=== PATIENT | male | born 1975 | race Caucasian/White ===

== ENCOUNTER 2017-02-14 17:21 | Emergency (ER) | payer OTHER ==
[~2017-02-14] VITALS: Ht 182.9 cm; Wt 72.8 kg
[~2017-02-14 17:21] MED LIST: ATARAX,VISTARIL25 MG PO; ATIVAN0.5 MG PO; BENTYL10 MG PO; BUSPAR15 MG PO; CATAPRES0.1 MG PO; CLONAZEPAM1 M1 PO; CLONIDINE HCL0.1 MG PO; CLONIDINE HCL0.2 MG PO; CYMBALTA30 MG PO; CYMBALTA60 MG PO; EFFEXOR XR37.5 MG PO; EFFEXOR25 MG PO; EFFEXOR37.5 MG PO; EFFEXOR75 MG PO; GABAPENTIN300 MG PO; GABAPENTIN600 MG PO; METHADONE HCL MC; METHADONE10 MG PO; METHADOSE10 MG PO; NEURONTIN300 MG PO; NEURONTIN400 MG PO; OMEPRAZOLE40 M1 PO; PRAZOSIN HCL2 MG PO; REMERON45 MG PO; Seroquel PO; VISTARIL25 MG PO; VISTARIL50 MG PO; WELLBUTR; ZOFRAN4 MG PO
[2017-02-14 19:57] VITALS: BP 122/86
== END 2017-02-14 19:58 | disposition home or self-care (01) ==
LOC: EME 17:21
DX: S80.01XA Contusion of right knee, initial encounter (principal); Z91.81 History of falling; J45.909 Unspecified asthma, uncomplicated; B19.20 Unspecified viral hepatitis C without hepatic coma; K21.9 Gastro-esophageal reflux disease without esophagitis; F17.200 Nicotine dependence, unspecified, uncomplicated
CPT/HCPCS: 73564; 84157; 84315; 89060; 99281; 99284

== ENCOUNTER 2017-06-16 11:59 | Emergency (ER) | payer OTHER ==
[~2017-06-16] VITALS: Ht 180.3 cm; Wt 74.0 kg
[2017-06-16] MEDS ORDERED: BACTRIM,SEPT1 TABLET PO (14:33)
[2017-06-16] MEDS ORDERED: MOTRIN800 MG PO (14:33)
[2017-06-16 14:53] VITALS: BP 110/83
== END 2017-06-16 14:56 | disposition home or self-care (01) ==
LOC: EME 11:59
PROC: 0H9JXZX Drainage of Left Upper Leg Skin, External Approach, Diagnostic (ICD-10-PCS; principal; 2017-06-16)
DX: L02.416 Cutaneous abscess of left lower limb (principal); L03.116 Cellulitis of left lower limb; F11.21 Opioid dependence, in remission; B19.20 Unspecified viral hepatitis C without hepatic coma; F17.200 Nicotine dependence, unspecified, uncomplicated; F41.0 Panic disorder [episodic paroxysmal anxiety]
CPT/HCPCS: 87070; 87075; 87077; 87147; 87186; 87205; 99281; 99284

== ENCOUNTER 2018-01-02 09:06 | Emergency (ER) | payer OTHER ==
[~2018-01-02] VITALS: Ht 172.7 cm; Wt 72.7 kg
[~2018-01-02 09:06] MED LIST changes: +BACTRIM,SEPT1 TABLET PO; +MOTRIN800 MG PO
[2018-01-02 10:22] VITALS: BP 152/95
== END 2018-01-02 10:24 | disposition home or self-care (01) ==
LOC: EME 09:06
DX: F11.20 Opioid dependence, uncomplicated (principal); F19.14 Other psychoactive substance abuse with psychoactive substance-induced mood disorder; F32.9 Major depressive disorder, single episode, unspecified; Z04.6 Encounter for general psychiatric examination, requested by authority; K21.9 Gastro-esophageal reflux disease without esophagitis; F43.10 Post-traumatic stress disorder, unspecified; F41.0 Panic disorder [episodic paroxysmal anxiety]; J45.909 Unspecified asthma, uncomplicated; B19.20 Unspecified viral hepatitis C without hepatic coma; F17.200 Nicotine dependence, unspecified, uncomplicated
CPT/HCPCS: 90837; 99281; 99283